=== PATIENT | female | born 1970 | race Hispanic/Latino ===

== ENCOUNTER 2021-05-19 12:50 | Outpatient (CLI) | payer OTHER ==
[2021-05-19 13:38] LABS: Basophils % (Auto) 0.6 % (0.0-1.8); Eosinophils # (Auto) 0.6 K/mm3 (0.0-0.4); Eosinophils % (Auto) 11.2 % (0.0-4.3); Hematocrit 38.4 % (30.3-42.9); Hemoglobin 12.3 gm/dl (10.1-14.3); Lymphocytes # (Auto) 2.2 K/mm3 (1.2-5.4); Lymphocytes % (Auto) 40.3 % (13.4-35.0); Mean Corpuscular HGB Conc 32 % (30-34); Mean Corpuscular Volume 77 fl (79-97); Monocytes # (Auto) 0.2 K/mm3 (0.0-0.8); Monocytes % (Auto) 3.8 % (0.0-7.3); Platelet Count 299 K/mm3 (140-440); Red Blood Count 4.99 M/mm3 (3.65-5.03); Red Cell Distribution Width 14.9 % (13.2-15.2)
[2021-05-19 13:54] LABS: Alanine Aminotransferase 20 units/L (7-56); Albumin 4.1 g/dL (3.9-5); Blood Urea Nitrogen 13 mg/dL (7-17); Calcium 8.8 mg/dL (8.4-10.2); Chol/HDL Ratio 2.56 %; HDL Cholesterol 73 mg/dL (40-59); Hemolysis Index 0; LDL Cholesterol,Direct 116 mg/dL (50-130)
[2021-05-19 13:55] LABS: BUN/Creatinine Ratio 33
== END 2021-05-19 12:51 | disposition home or self-care (01) ==
LOC: LAB 12:50
PROVIDERS: ATTEND Surgery
DX: Z13.21 Encounter for screening for nutritional disorder (principal); E66.1 Drug-induced obesity; E11.9 Type 2 diabetes mellitus without complications; K30 Functional dyspepsia; K90.9 Intestinal malabsorption, unspecified; Z13.29 Encounter for screening for other suspected endocrine disorder; Z98.84 Bariatric surgery status
CPT/HCPCS: 36415; 80053; 80061; 82306; 82607; 82728; 83036; 83970; 84425; 84443; 85025

== ENCOUNTER 2021-07-18 08:50 | Inpatient (IN) | payer OTHER ==
[~2021-07-18 08:50] MED LIST: ACETAMINOPHEN IV 1,000 MG/100 ML BOTTLE IV NR; ENOXAPARIN 40 MG/0.4 ML INJ SUB-Q NR; GABAPENTIN 500 MG/10 ML ORAL LIQD PO NR; LACTATED RINGERS 1,000 ML IV SCH; MIDAZOLAM 2 MG/2 ML INJ IV NR; ceFAZolin/Water 2 GM/20 ML 2 GM/20 ML SYRINGE IV NR; methOCARBAMOL 1,000 MG in SODIUM CHLORIDE 0.9% 250ML 250 ML IV SCH; metroNIDAZOLE/NS 500 MG/100 ML 500 MG/100 ML BAG IV NR
[2021-07-18] MEDS ORDERED: SCOPOLAMINE TRANSDERMAL PATCH 72 HR TD SCH (10:00)
[2021-07-18] MEDS ORDERED: ONDANSETRON 4 MG/2 ML INJ IV PRN ×2 (10:09→18:01)
--- NOTE | 2021-07-18 10:09 | Anesthesia Consultation ---
Anesthesia Consult and Med Hx Date of service: 07/18/21 - Airway Anesthetic Teeth Evaluation: Good ROM Head & Neck: Adequate Mental/Hyoid Distance: Adequate Mallampati Class: Class I Intubation Access Assessment: Good - Pulmonary Exam CTA: Yes - Cardiac Exam Cardiac Exam: RRR - Pre-Operative Health Status ASA Pre-Surgery Classification: ASA2 Proposed Anesthetic Plan: General - Pulmonary Hx Smoking: No Hx Respiratory Symptoms: No Hx Sleep Apnea: No (reports negative sleep study 2yrs ago) - Cardiovascular System Hx Hypertension: No Hx Coronary Artery Disease: No (reports normal TTE and LHC 2020) Hx Heart Attack/AMI: No (>4mets functional capacity, no hx CHF) Hx Cardia Arrhythmia: No - Central Nervous System CVA: No - Endocrine Hx Renal Disease: No (outpatient labs 05/2021 reviewed) Hx Liver Disease: No Hx Insulin Dependent Diabetes: No Hx Non-Insulin Dependent Diabetes: No Hx Hypothyroidism: Yes (s/p thyroidectomy) - Hematic Hx Anemia: No (outpatient labs 05/2021 reviewed) - Other Systems Hx Obesity: No (BMI 29) - Additional Comments Anesthesia Medical History Comments: No hx anesthetic complications.
--- NOTE | 2021-07-18 10:09 | Anesthesia Day of Surgery ---
Anesthesia Day of Surgery - Day of Surgery Patient Examined: Yes Patient H&P Reviewed: Yes Patient is NPO: Yes
[2021-07-18] MEDS ORDERED: methOCARBAMOL 1,000 MG in SODIUM CHLORIDE 0.9% 250ML 250 ML IV ONE (10:30)
[2021-07-18 10:56] LABS: Basophils % (Auto) 0.7 % (0.0-1.8); Eosinophils # (Auto) 0.1 K/mm3 (0.0-0.4); Hematocrit 36.9 % (30.3-42.9); Hemoglobin 12.3 gm/dl (10.1-14.3); Lymphocytes # (Auto) 1.3 K/mm3 (1.2-5.4); Lymphocytes % (Auto) 36.2 % (13.4-35.0); Mean Corpuscular HGB Conc 33 % (30-34); Mean Corpuscular Volume 78 fl (79-97); Monocytes # (Auto) 0.3 K/mm3 (0.0-0.8); Monocytes % (Auto) 9.7 % (0.0-7.3); Platelet Count 254 K/mm3 (140-440); Red Cell Distribution Width 14.7 % (13.2-15.2)
[2021-07-18 11:23] LABS: Alanine Aminotransferase 18 units/L (7-56); Albumin 4.5 g/dL (3.9-5); Blood Urea Nitrogen 12 mg/dL (7-17); Calcium 9.3 mg/dL (8.4-10.2); Hemolysis Index 6
[2021-07-18 11:31] LABS: BUN/Creatinine Ratio 30
[2021-07-18] MEDS ORDERED: BUPIVACAINE/PF (0.25%) 2.5 MG/ML 30 ML VIAL INFILTRATI ONE ×2 (13:38→15:03)
[2021-07-18] MEDS ORDERED: LIDOCAINE 2%/EPINEPHRINE 1:200,000 VIAL (20 ML) INFILTRATI ONE (13:38)
[2021-07-18] MEDS ORDERED: LIDOCAINE MPF (2%) 20 MG/1 ML VIAL 5 ML ONE ×2 (13:51→14:30)
[2021-07-18] MEDS ORDERED: ROCURONIUM 50 MG/5 ML INJ IV ONE ×2 (13:51→16:26)
[2021-07-18] MEDS ORDERED: ONDANSETRON 4 MG/2 ML INJ ONE ×2 (13:51→17:59)
[2021-07-18] MEDS ORDERED: MAGNESIUM SULFATE 4 GM/100 ML BAG IV ONE (13:53)
[2021-07-18] MEDS ORDERED: SODIUM CHLORIDE P/F VIAL 10 ML 10 ML ONE (13:54)
[2021-07-18] MEDS ORDERED: KETAMINE/STERILE WATER 50 MG/ML SYRINGE ONE (13:57)
[2021-07-18] MEDS ORDERED: LIDOCAINE 2%/EPINEPHRINE 1:100,000 VIAL (20 ML) INFILTRATI ONE (15:03)
[2021-07-18] MEDS ORDERED: SODIUM CHLORIDE 0.9% IRR 1,500 ML BOTTLE IR ONE (15:03)
[2021-07-18] MEDS ORDERED: SODIUM CHLORIDE 0.9% IRRIG SOLN 2000 ML IR ONE (15:04)
[2021-07-18] MEDS ORDERED: SUGAMMADEX SODIUM 200 MG/2 ML VIAL IV ONE (15:23)
[2021-07-18] MEDS ORDERED: PHENYLEPHRINE/NS 1,000 MCG/10 ML SYRINGE (OR USE) IV ONE (15:24)
[2021-07-18] MEDS ORDERED: dexAMETHasone 20 MG/5 ML VIAL ONE (16:26)
[2021-07-18] MEDS ORDERED: LACTATED RINGERS 1,000 ML ONE (16:53)
[2021-07-18] MEDS: fentaNYL 100 MCG/2 ML INJ IV PRN ×2 (17:45→18:13)
[2021-07-18] MEDS ORDERED: MORPHINE 2 MG/1 ML INJ IV PRN (18:01)
[2021-07-18] MEDS ORDERED: HYDROcodone/Acetaminophen 7.5-325MG-15ML ORAL LIQD PO PRN (18:01)
[2021-07-18] MEDS ORDERED: hydrALAZINE 20 MG/1 ML INJ IV PRN (18:01)
[2021-07-18] MEDS ORDERED: HYDROmorphone 0.5 MG/0.5 ML INJ IV PRN (18:01)
[2021-07-18] MEDS ORDERED: METOCLOPRAMIDE 10 MG/2 ML INJ IV PRN (18:01)
--- NOTE | 2021-07-18 18:26 | Operative Report ---
Operative Report Operative Report: DATE OF PROCEDURE: 07/18/2021 SURGEON: Fara Peng M.D. ACCELERATOR OPERATOR: Therese retana CSA MD PREOPERATIVE DIAGNOSIS: GERD, hx of gastric sleeve POSTOPERATIVE DIAGNOSES: GERD, hx of gastric sleeve, recurrent hiatal hernia PROCEDURES PERFORMED: 1. Laparoscopic gastric bypass. 2. laparoscopic redo hiatal hernia repair ANESTHESIA: General endotracheal tube intubation, TAP block SPECIMENS: None. ESTIMATED BLOOD LOSS: Less than 20 mL. FINDINGS: Proximal stomach herniated above the level of diaphragm COMPLICATIONS: None. INDICATION: Ms. Duncan is a 50-year-old female with history of severe gastroesophageal reflux after sleeve gastrectomy several years ago for the treatment of morbid obesity. She was found to have a sharp angulation in the mid body of her sleeved stomach on endoscopy which was thought to be part of the cause of her reflux. She has had unrelenting reflux despite years of PPI therapy and recent cholecystectomy. She is here today for conversion to gastric bypass which is an antireflux procedure. She signed informed consent and expressed understanding of risks and benefits. DESCRIPTION OF PROCEDURE: Patient was brought to the OR suite, laid in supine position. Bilateral lower extremity SCDs were placed. General anesthesia was induced via successful endotracheal tube intubation. Patient's abdomen was prepped and draped in sterile fashion. A veress needle was used to insuflate the abdomen to a pressure of 15 mmHg in the left subcostal region. Using Optiview technique, a 5- mm trocar was placed into the abdominal cavity under direct vision just superior and to the left of the umbilicus. There was noted to be no gross injury to any intraabdominal structures. 12 mm in the right mid abdomen mid clavicular line and three 5-mm trocars in the right upper quadrant, epigastric areas were placed under direct visualization. At this time, the ligament of Treitz identified and followed down approximately 75 cm and the jejunum was transected. The distal segment of jejunum was then traced for approximately 100 cm and a stable [id number] jejunojejunostomy was performed. The common enterotomy was closed with 2 firings of the endoscopic stapler. The mesenteric defect was closed with running Surgidac suture. This anastomosis was found to be patent without kink, obstruction or bleeding. At this time, the patient was placed in steep reverse Trendelenburg position. A liver retractor was placed through the epigastric port to elevate the left lateral lobe of the liver. The proximal sleeved stomach was noted to be adhered to the underside of the liver. Once it was dissected free of the liver there was noted to be recurrence of her hiatal hernia that was previously repaired both anterior and posteriorly. At this time great care was taken to do a 360 degree circumferential dissection due to the fact that 1 to 2 cm of proximal stomach were above the level of diaphragm. Once that was complete dissection of the hernia sac the stomach was reduced into the abdominal cavity and the GE junction rested approximately 2 cm below the level diaphragm without tension. Both anterior and posterior cruroplasties were performed using a Surgidac suture. It took more than 45 minutes to accomplish this as there was significant scar tissue in previous sutures that had to be navigated in order to safely reduce the stomach into the abdominal cavity. A small gastric pouch was formed with a firings of the gold load on a laparosWidbook pic stapler. The Marcelina limb was then brought in an antegastric antecolic fashion and secured with 2 stay sutures to the gastric pouch. After this, the enterotomies were made with Harmonic scalpel, and a [id number] stapled gastrojejunostomy was performed with a mechanical stapler. After this, a 2-layer running closure using absorbable V-lock suture were done, the first being mucosal approximation prior to completion of the first layer. Then I passed and an EGD scope beyond the anastomosis to act as a stent. The first layer was completed, the second was then performed. After this, the EGD was retracted slightly. A bowel clamp was placed in a proximal Marcelina limb. The anastomosis was submerged under saline. Via intraluminal EGD insufflation, there was noted be no bubbles in the saline indicating an airtight anastomosis. There was noted to be no obstruction or bleeding intraluminally in the pouch or the anastomosis. At this time, the scope was removed. The saline was aspirated. Vistaseal was placed over the anastomosis. All trocars were removed under direct visualization and the abdomen was then desufflated. A TAP block was performed using a total of 60 mL 0.25% Marcaine along bilateral mid axillary lines starting at the subcostal margin at the level of the umbilicus. The 12mm trocar site was closed using POD and a Nick Nancy device for fear that after surgery it become incarcerated. The skin incisions were closed with 4-0 Monocryl followed by Dermabond dressings. Patient was awoken and taken to recovery in stable condition. All counts were correct.
--- NOTE | 2021-07-18 18:48 | Post Anesthesia Evaluation ---
- Post Anesthesia Evaluation Patient Participated: Yes Airway Patent: Yes Stable Respiratory Function: Yes Nausea/Vomiting: No Temp > 96.8F: Yes Pain Manageable: Yes Adequeate Hydration: Yes Anesthesia Complications: No
[2021-07-18] MEDS: ACETAMINOPHEN IV 1,000 MG/100 ML BOTTLE IV SCH (20:16)
[2021-07-18] MEDS: PANTOPRAZOLE 40 MG INJ IV SCH (20:25)
[2021-07-18] MEDS: metroNIDAZOLE/NS 500 MG/100 ML 500 MG/100 ML BAG IV SCH (20:28)
[2021-07-18] MEDS: SIMETHICONE 80 MG CHEW TAB PO PRN (20:32)
[2021-07-18] MEDS: ceFAZolin/NS 1 GM/50 ML 1 GM/50 ML BAG IV SCH (22:16)
[2021-07-18] MEDS: KETOROLAC 30 MG/1 ML INJ IV SCH (22:16)
[2021-07-19] MEDS: LACTATED RINGERS 1,000 ML IV SCH ×3 (00:35→21:21)
[2021-07-19] MEDS: ACETAMINOPHEN IV 1,000 MG/100 ML BOTTLE IV SCH ×3 (02:12→13:58)
[2021-07-19] MEDS: SIMETHICONE 80 MG CHEW TAB PO PRN ×2 (02:36→20:35)
[2021-07-19] MEDS: metroNIDAZOLE/NS 500 MG/100 ML 500 MG/100 ML BAG IV SCH ×2 (04:30→10:35)
[2021-07-19 05:05] LABS: Basophils % (Auto) 0.1 % (0.0-1.8); Hematocrit 34.4 % (30.3-42.9); Hemoglobin 11.4 gm/dl (10.1-14.3); Lymphocytes # (Auto) 0.4 K/mm3 (1.2-5.4); Lymphocytes % (Auto) 8.2 % (13.4-35.0); Mean Corpuscular HGB Conc 33 % (30-34); Mean Corpuscular Volume 79 fl (79-97); Monocytes # (Auto) 0.2 K/mm3 (0.0-0.8); Monocytes % (Auto) 3.7 % (0.0-7.3); Platelet Count 231 K/mm3 (140-440); Red Blood Count 4.35 M/mm3 (3.65-5.03); Red Cell Distribution Width 14.6 % (13.2-15.2)
[2021-07-19 05:23] LABS: Alanine Aminotransferase 37 units/L (7-56); Albumin 3.6 g/dL (3.9-5); Blood Urea Nitrogen 12 mg/dL (7-17); Calcium 8.5 mg/dL (8.4-10.2); Hemolysis Index 8
[2021-07-19 05:25] LABS: BUN/Creatinine Ratio 30
[2021-07-19] MEDS: ceFAZolin/NS 1 GM/50 ML 1 GM/50 ML BAG IV SCH (05:44)
[2021-07-19] MEDS: KETOROLAC 30 MG/1 ML INJ IV SCH ×4 (05:44→20:32)
[2021-07-19] MEDS ORDERED: LIOTHYRONINE SODIUM 50 MCG PO SCH (10:00)
[2021-07-19] MEDS ORDERED: THYROID PORK 180 MG PO SCH (10:00)
[2021-07-19] MEDS: ENOXAPARIN 40 MG/0.4 ML INJ SUB-Q SCH (10:35)
[2021-07-19] MEDS: PANTOPRAZOLE 40 MG INJ IV SCH (10:35)
--- NOTE | 2021-07-19 16:45 | Progress Note ---
Assessment and Plan POD#1 s/p conversion of gastric sleeve to gastric bypass and redo hiatal hernia repair for recurrence. Afebrile and stable. Patient a little dizzy with ambulation will continue to observe one more night and likely discharge tomorrow Subjective Date of service: 07/19/21 Narrative: No acute events overnight. Patient says that she feels dizzy sometimes when she walks. Patient is drinking pretty easily her clear liquids. Objective Vital Signs - 12hr 07/19/21 07/19/21 07/19/21 07:00 08:19 09:57 Temperature 98.4 F Pulse Rate 104 H Blood Pressure 106/51 O2 Sat by Pulse 98 99 99 Oximetry 07/19/21 07/19/21 12:13 15:44 Temperature 97.9 F 98.7 F Pulse Rate 109 H 90 Blood Pressure 106/54 105/54 O2 Sat by Pulse 100 99 Oximetry - General physical appearance well developed, no distress, no pain - Eyes PERRL - ENT no hearing loss - Respiratory normal expansion, normal respiratory effort - Abdomen soft, not distended, not guarding, other (incision c/d/i, appropriately tender to palpation) - Labs 07/19/21 04:11 07/19/21 04:11 Diabetes panel 07/19/21 Range/Units 04:11 Sodium 138 (137-145) mmol/L Potassium 4.1 (3.6-5.0) mmol/L Chloride 103.1 (98-107) mmol/L Carbon Dioxide 19 L D (22-30) mmol/L BUN 12 (7-17) mg/dL Creatinine 0.4 L (0.6-1.2) mg/dL Glucose 117 H (65-100) mg/dL Calcium 8.5 (8.4-10.2) mg/dL AST 50 H (5-40) units/L ALT 37 (7-56) units/L Alkaline Phosphatase 82 (35-129) units/L Total Protein 6.5 (6.3-8.2) g/dL Albumin 3.6 L (3.9-5) g/dL Calcium panel 07/19/21 Range/Units 04:11 Calcium 8.5 (8.4-10.2) mg/dL Albumin 3.6 L (3.9-5) g/dL Pituitary panel 07/19/21 Range/Units 04:11 Sodium 138 (137-145) mmol/L Potassium 4.1 (3.6-5.0) mmol/L Chloride 103.1 (98-107) mmol/L Carbon Dioxide 19 L D (22-30) mmol/L BUN 12 (7-17) mg/dL Creatinine 0.4 L (0.6-1.2) mg/dL Glucose 117 H (65-100) mg/dL Calcium 8.5 (8.4-10.2) mg/dL Adrenal panel 07/19/21 Range/Units 04:11 Sodium 138 (137-145) mmol/L Potassium 4.1 (3.6-5.0) mmol/L Chloride 103.1 (98-107) mmol/L Carbon Dioxide 19 L D (22-30) mmol/L BUN 12 (7-17) mg/dL Creatinine 0.4 L (0.6-1.2) mg/dL Glucose 117 H (65-100) mg/dL Calcium 8.5 (8.4-10.2) mg/dL Total Bilirubin 0.40 (0.1-1.2) mg/dL AST 50 H (5-40) units/L ALT 37 (7-56) units/L Alkaline Phosphatase 82 (35-129) units/L Total Protein 6.5 (6.3-8.2) g/dL Albumin 3.6 L (3.9-5) g/dL
[2021-07-20] MEDS: KETOROLAC 30 MG/1 ML INJ IV SCH (01:30)
[2021-07-20] MEDS: LACTATED RINGERS 1,000 ML IV SCH (02:07)
[2021-07-20 05:34] LABS: Basophils % (Auto) 0.2 % (0.0-1.8); Eosinophils # (Auto) 0.2 K/mm3 (0.0-0.4); Eosinophils % (Auto) 3.7 % (0.0-4.3); Hematocrit 30.1 % (30.3-42.9); Hemoglobin 10.1 gm/dl (10.1-14.3); Lymphocytes # (Auto) 1.6 K/mm3 (1.2-5.4); Lymphocytes % (Auto) 28.5 % (13.4-35.0); Mean Corpuscular HGB Conc 34 % (30-34); Mean Corpuscular Volume 79 fl (79-97); Monocytes # (Auto) 0.3 K/mm3 (0.0-0.8); Monocytes % (Auto) 5.3 % (0.0-7.3); Platelet Count 184 K/mm3 (140-440)
[2021-07-20 06:03] LABS: Alanine Aminotransferase 21 units/L (7-56); Blood Urea Nitrogen 9 mg/dL (7-17); Calcium 8.4 mg/dL (8.4-10.2); Hemolysis Index 27
[2021-07-20 06:06] LABS: BUN/Creatinine Ratio 30
[2021-07-20] MEDS: SIMETHICONE 80 MG CHEW TAB PO PRN (06:10)
[2021-07-20] MEDS: ENOXAPARIN 40 MG/0.4 ML INJ SUB-Q SCH (10:28)
[2021-07-20] MEDS: PANTOPRAZOLE 40 MG INJ IV SCH (10:28)
--- NOTE | 2021-07-20 11:09 | Discharge Summary ---
Providers - Providers Date of Admission: 07/18/21 09:45 Date of discharge: 07/20/21 Attending physician: TAMMIE AVILES MD 07/18/21 18:01 Physical Therapy Evaluation and Treat [CONS] Routine Comment: Reason For Exam: post op bariatric surgery Primary care physician: MAINTENANCE TECH Hospitalization Reason for admission: Status post conversion of gastric sleeve to bypass Condition: Good Procedures: laparpscopic redo hiatal hernia repair and conversion of gastric sleeve to gastric bypass Hospital course: Patient had an uneventful conversion of gastric sleeve to bypass. She also had a redo hiatal hernia for the treatment of unremitting gastroesophageal reflux secondary to her sleeve gastrectomy. Patient recovered well and remained afebrile and stable while tolerating clear liquids. Her pain was controlled and she was ambulating well independently by postop day #2. She was discharged home on postop day 2 showing no gross clinical signs of leak or bleeding. Patient is to follow-up in the office in 2 weeks. Disposition: 01 HOME / SELF CARE / HOMELESS Final Discharge Diagnosis (Prints w/discharge instructions): gerd, hx of bariatric surgery Core Measure Documentation - Palliative Care Palliative Care/ Comfort Measures: Not Applicable - Core Measures Any of the following diagnoses?: none Exam - Constitutional Vitals: Temp Pulse Resp BP Pulse Ox 98.2 F 78 16 119/61 100 07/20/21 08:03 07/20/21 08:03 07/20/21 05:06 07/20/21 08:03 07/20/21 08:27 General appearance: Present: no acute distress - EENT Eyes: Present: PERRL - Respiratory Respiratory effort: normal - Cardiovascular Heart Sounds: Present: S1 & S2 - Extremities Extremities: no ischemia - Abdominal General gastrointestinal: Present: soft, non-distended, other (incisions c/d/i, appropriatley tender to palpation) Plan Activity: advance as tolerated Diet: low carbohydrate Wound: open to air, keep clean and dry Follow up with: PRIMARY CAREMD [Primary Care Provider] - 7 Days
[2021-07-20 12:06] VITALS: BP 114/58
[2021-07-21] MEDS ORDERED: PANTOPRAZOLE 40 MG TAB PO SCH (07:30)
== END 2021-07-20 14:42 | disposition home or self-care (01) | DRG 328 ==
LOC: 3A 09:45 → 4A 16:29
PROVIDERS: ADMIT Surgery; ATTEND Surgery
PROC: 0D164ZA Bypass Stomach to Jejunum, Percutaneous Endoscopic Approach (ICD-10-PCS; principal; 2021-07-18)
PROC: 0BQT4ZZ Repair Diaphragm, Percutaneous Endoscopic Approach (ICD-10-PCS; 2021-07-18)
DX: K21.9 Gastro-esophageal reflux disease without esophagitis (principal); K44.9 Diaphragmatic hernia without obstruction or gangrene; Z68.29 Body mass index [BMI] 29.0-29.9, adult; E03.2 Hypothyroidism due to medicaments and other exogenous substances
CPT/HCPCS: 36415; 80053; 85025; 94760; G0378; J3490; J7121; J7517; C9113; J0131; J0690; J1100; J1650; J1885; J2270; J2370; J2405; J2704; J3010; J3475; J7120

== ENCOUNTER 2021-10-25 13:58 | Emergency (ER) | payer OTHER ==
[2021-10-25 14:27] VITALS: BP 114/71
== END 2021-10-25 16:00 | disposition left against medical advice (07) ==
LOC: ED 13:58
DX: R10.9 Unspecified abdominal pain (principal); Z53.21 Procedure and treatment not carried out due to patient leaving prior to being seen by health care provider